=== PATIENT | female | born 1990 | race Caucasian/White ===

== ENCOUNTER 2017-05-21 17:59 | Emergency (ER) | payer MEDICAID ==
[~2017-05-21] VITALS: Ht 152.4 cm; Wt 92.5 kg
[~2017-05-21 17:59] MED LIST: IRON1TAB75 BU; PREN-39 PO; PREN1CAP12 ODT; PREN1TAB17 BU; PREN1TAB62 PO
[2017-05-21 18:22] VITALS: Ht 152.4 cm; Wt 92.5 kg
[2017-05-21] MEDS ORDERED: KETOROLAC 30 MG INJ IV STA (19:08)
--- NOTE | 2017-05-21 19:12 | ERD ---
ER Documentation Chief Complaint Chief Complaint HEADACHE, DIZZINESS, VOMITTING HPI Otherwise healthy 27-year-old female presenting with a chief complaint of headache days described as tight, associated with vomiting 2 today and dizziness. Dizziness worse with movement. Denies fever, abdominal pain, nausea , constipation, diarrhea, worst headache of life, thunderclap headache, meningismus, temporal pain, eye pain, aura, double vision/change in vision, or new medications. The nursing notes have been reviewed and are consistent with the obtained history. ROS All systems reviewed and are negative except as per history of present illness. Medications Home Meds Reported Medications Vit-Iron Fumarate-FA ( Vitamin Tablet) 1 Each Tablet, 1 EACH PO DAILY 08/16/13 Iron &Iron Asp Gly/Fa/Mv,Min38 (IRON TABLET) 1 Each Tablet, 1 EACH BU DAILY 08/09/13 Vit-Iron Fumarate-FA ( Tablet) 1 Each Tablet, 1 EACH BU DAILY 08/09/13 Vits W-Ca,Fe,Fa(<1MG) ( Vitamins) 1 Tab Tablet, 1 TAB PO DAILY 07/31/13 No.25/Iron/Fa #6/Dha (PRENA1 SOFTGEL) 1 Each Capsule, 1 EACH ODT DAILY , #1 07/30/13 Allergies Allergies: Coded Allergies: No Known Allergies (Verified Allergy, Unknown, 08/09/13) Physical Exam Vitals Vital Signs Date Time Temp Pulse Resp B/P Pulse Ox O2 Delivery O2 Flow Rate FiO2 05/21/17 18:22 98.0 117 18 115/77 97 Physical Exam Const: Healthy-appearing. Well-nourished. Well-developed. No acute distress. Head: Normocephalic, Atraumatic. Eyes: Non-injected; No discharge or foreign body. Ophthalmoscope exam unremarkable. EOMI and RALPH bilaterally. No nystagmus. Neur: Awake, alert and oriented x3. Neurovascularly intact bilaterally. Psych: Normal Mood and Affect. Ears: Normal External Ears, EACs clear, TM normal bilaterally without erythema. Nose: Normal external nose; no discharge, septal deviation, or sinus tenderness. Oral: No oral edema visualized. Mucous membranes moist and pink. Neck: No cervical lymphadenopathy, masses or goiter palpated. Trachea midline. Full range of motion. Supple ~ No meningismus. Negative kernings and brudnizkis signs. Pulm: Good air movement in upper and lower respiratory tracts. No dyspnea, stridor, tripoding or drooling. Clear to auscultation bilaterally. Cardio: Regular rate and rhythm; No murmurs, gallops or rubs auscultated. No JVD grossly observed. Radial and posterior tibial pulses 2+ bilaterally. No cyanosis. Capillary refill less than 2 seconds. Abd: Soft, non tender, non distended. No guarding, masses. Normal bowel sounds. No McBurney's point tenderness. MS: Normal motor strength, normal tone with gross examination. Skin: No petechiae or rashes. No ulcer, induration, jaundice. Good turgor. Back: No midline, flank or CVA tenderness. Ext: No edema or palpable cord. Normal movement of all extremities grossly observed. Results 24 hrs Current Medications Medications (Trade) Dose Ordered Sig/Elysia Route PRN Reason Start Time Stop Time Status Last Admin Dose Admin Sodium Chloride (NS) 1,000 ml @ 1,000 mls/hr Q1H ONCE IV 05/21/17 19:30 05/21/17 20:29 DC 05/21/17 19:42 Diphenhydramine HCl (Benadryl) 25 mg ONCE ONCE IV 05/21/17 19:30 05/21/17 19:31 DC 05/21/17 19:41 Metoclopramide HCl (Reglan) 10 mg ONCE ONCE IV 05/21/17 19:30 05/21/17 19:31 DC 05/21/17 19:41 Ketorolac Tromethamine (Toradol) 30 mg ONCE STAT IV 05/21/17 19:08 05/21/17 19:09 DC 05/21/17 19:41 Procedures/MDM Otherwise healthy 27-year-old female presents with a chief complaints of headache, dizziness and vomiting. Patient was given 1 L normal saline, Benadryl 25 mg IV, Toradol 30 mg IV, and Reglan 10 mg IV with complete resolution of symptoms. Most likely diagnosis is tension type headache versus common migraine. No indication for CT evaluation. I have no suspicion for SAH , other intracranial bleeds, meningitis, temporal arteritis, glaucoma, hypertensive urgency or emergency, ischemia, mass, or pain secondary to trauma. Patient will be treated with conservative therapy. Conservative therapy has been discussed. I have spoke with the patient regarding their condition and future management. They have verbally responded that they understand their status and treatment plan. The patients vitals are stable, and their current condition is appropriate for discharge. The patient will be given discharge instructions with return precautions. Departure Diagnosis: Primary Impression: Acute headache Headache type: tension-type Intractability: not intractable Qualified Code : G44.209 - Acute non intractable tension-type headache Condition: Stable Additional Instructions: Follow up with your PCP within the next 1-3 days for a more thorough evaluation and a possible referral to a specialist. Return the the emergency department immediately if symptoms worsen or change. If you have any questions regarding medications, ask your pharmacist or us before you leave. If any adverse reactions occur while taking your medications, discontinue the treatment and return to the emergency department immediately. Take your medications as directed, and complete the entire course of treatment. YOEL DAMON PA-C May 21, 2017 19:12
[2017-05-21] MEDS ORDERED: METOCLOPRAMIDE 10 MG INJ IV ONE (19:30)
[2017-05-21] MEDS ORDERED: DIPHENHYDRAMINE 50 MG INJ IV ONE (19:30)
[2017-05-21] MEDS ORDERED: SOD CHLORIDE 0.9% 1,000 ML IV ONE (19:30)
[2017-05-21 22:10] VITALS: BP 118/62; PULSE 93; RESP 20; TEMP 98.8
== END 2017-05-21 22:10 | disposition home or self-care (01) ==
LOC: FTE 17:59
DX: G44.209 Tension-type headache, unspecified, not intractable (principal); R11.10 Vomiting, unspecified
CPT/HCPCS: 96374; 96375; J1200; J1885; J2765; J7030; Z7502